=== PATIENT | female | born 1935 | race Caucasian/White ===

== ENCOUNTER → 2016-12-23 | Outpatient (CLI) | payer MEDICARE ==
[~2016-12-23] MED LIST: ALPR-475 PO; ASCO-96 PO; ASPI-621 PO; ATOR20TA9 PO; BUPR-86 PO; CALCIUM PO; CHOL200024 PO; CITA20TA5 PO; FURO-93 PO; KRIL1CAP19 PO; LISI-170 PO; LORA10TA3 PO; METO25TA35 PO; MULT-516 PO; NAPR375T5 PO; OXYC-302 PO; POTASSIUM PO; TIZA2TAB PO; UBID100C19 PO; VIT1CAPS11 PO; VITA1TAB19 PO
[2016-12-23 15:54] LABS: HEMOGLOBIN 11.3 g/dL (11.7-16.4); WHITE BLOOD COUNT 7.2 x10^3/uL (3.4-10)
[2016-12-23 16:07] LABS: ASPARTATE AMINO TRANSFERASE 17 U/L (15-37); BLOOD UREA NITROGEN 22 mg/dL (7-18)
[2016-12-23 16:33] LABS: PATH.CAST-FLAG NOT PRESENT; SPERM-FLAG NOT PRESENT; SRC-FLAG NOT PRESENT; XTAL-FLAG NOT PRESENT; YLC-FLAG NOT PRESENT
== END | disposition home or self-care (01) ==
LOC: STAR 14:40
PROVIDERS: ATTEND Orthopaedic Surgery
DX: Z01.818 Encounter for other preprocedural examination (principal); M17.0 Bilateral primary osteoarthritis of knee; R94.31 Abnormal electrocardiogram [ECG] [EKG]
CPT/HCPCS: 36415; 80053; 81001; 85025; 87081; 87086; 87147; 93005

== ENCOUNTER 2017-01-06 06:17 | Inpatient (IN) | payer MEDICARE ==
[2016-12-23 15:09] VITALS: BP 150/77
[~2017-01-06] VITALS: Ht 161.3 cm; Wt 74.4 kg
[2017-01-06] MEDS ORDERED: VANCOMYCIN PER PHARMACY MC STA (06:24)
[2017-01-06] MEDS ORDERED: VANCOMYCIN 1,200 MG in SODIUM CHLORIDE 0.9% 250 ML IV ONE (06:30)
[2017-01-06] MEDS ORDERED: LIDOCAINE 1%, 2ML ONE (06:34)
[2017-01-06] MEDS ORDERED: LACTATED RINGERS 1,000 ML IV SCH (06:38)
[2017-01-06] MEDS ORDERED: FENTANYL PF 250 MCG/5ML ONE (06:51)
[2017-01-06] MEDS ORDERED: ROCURONIUM 10 MG/ML,10ML ONE (06:52)
[2017-01-06] MEDS ORDERED: PROPOFOL 10 MG/ML, 20ML ONE (06:52)
[2017-01-06] MEDS ORDERED: CEFAZOLIN 1,000 MG ONE ×2 (06:52)
[2017-01-06] MEDS ORDERED: BUPIVACAINE/PF 0.5% ONE (06:55)
[2017-01-06] MEDS ORDERED: LIDOCAINE 1%, 2ML SQ PRN (07:00)
[2017-01-06] MEDS ORDERED: OXYC20TA59 PO (07:00)
[2017-01-06] MEDS ORDERED: CELE200C PO (07:00)
[2017-01-06] MEDS ORDERED: TRANEXAMIC ACID 100 MG/ML, 10ML ONE (07:06)
[2017-01-06] MEDS ORDERED: NEOSPORIN OINT, 15GM ONE (07:06)
[2017-01-06] MEDS ORDERED: KETOROLAC 60 MG/2 ML ONE (07:06)
[2017-01-06] MEDS ORDERED: ROPivacaine/PF 0.2%, 10 ML ONE (07:06)
[2017-01-06] MEDS ORDERED: morphine SULFATE/PF 1 MG/ML, 10ML ONE (07:07)
[2017-01-06] MEDS ORDERED: EPINEPHRINE 1 MG/ML, 1ML ONE (07:07)
[2017-01-06] MEDS ORDERED: FENTANYL PF 100 MCG/2ML IV PRN (08:00)
[2017-01-06] MEDS ORDERED: LABETALOL 5MG/ML, 20ML IV PRN (08:00)
[2017-01-06] MEDS ORDERED: OXYcodone 5 MG/5 ML ORAL.SOL UDC PO PRN (08:00)
[2017-01-06] MEDS ORDERED: METOPROLOL 1 MG/ML, 5ML IV PRN (08:00)
[2017-01-06] MEDS ORDERED: PROMETHAZINE 25 MG/ML, 1ML IV PRN (08:00)
[2017-01-06] MEDS ORDERED: hydrALAzine 20 MG/ML, 1ML IV PRN (08:00)
[2017-01-06] MEDS ORDERED: EPHEDRINE 50 MG/ML, 1ML IVPush PRN (08:00)
[2017-01-06] MEDS ORDERED: HYDROmorphone 1 MG/ML, 1ML IV PRN (08:00)
[2017-01-06] MEDS ORDERED: ONDANSETRON 2MG/ML, 2ML IVPush PRN ×2 (08:00→11:00)
[2017-01-06] MEDS ORDERED: ALBUTEROL SULFATE 2.5 MG/3 ML NPPB PRN (08:00)
[2017-01-06] MEDS ORDERED: SODIUM CHLORIDE 0.9% 100 ML ONE (08:00)
[2017-01-06] MEDS ORDERED: ONDANSETRON 2MG/ML, 2ML ONE (08:01)
[2017-01-06] MEDS ORDERED: DEXAMETHASONE 4 MG/ML, 1ML ONE (08:01)
[2017-01-06] MEDS ORDERED: NEOSTIGMINE 1 MG/ML, 10ML ONE (08:48)
[2017-01-06] MEDS ORDERED: GLYCOPYRROLATE 0.4 MG/2 ML, 2ML ONE (08:48)
[2017-01-06] MEDS ORDERED: MAGNESIUM HYDROXIDE 8%, 30ML UDC PO PRN (11:00)
[2017-01-06] MEDS ORDERED: DIPHENHYDRAMINE 25 MG CAPSULE PO PRN (11:00)
[2017-01-06] MEDS ORDERED: ALUMINUM/MAG/SIMETHICONE 30 ML UDC PO PRN (11:00)
[2017-01-06] MEDS ORDERED: HYDROcodone/APAP 7.5-325MG/15ML UDC PO PRN (11:30)
[2017-01-06] MEDS ORDERED: SCOPOLAMINE PATCH, 1.5MG PATCH.TD72 TD PRN (11:30)
[2017-01-06 14:26] VITALS: BP 106/59
[2017-01-06] MEDS: D5%-0.45% NACL+KCL 10MEQ 1,000 ML IV SCH (15:48)
[2017-01-06] MEDS: CEFAZOLIN PMX 1GM/50ML 50 ML IVPB SCH ×2 (15:48→23:49)
[2017-01-06 18:07] VITALS: BP 131/66
[2017-01-06] MEDS: METOPROLOL TARTRATE 25 MG TABLET PO SCH (18:08)
[2017-01-06 19:22] VITALS: BP 111/55
[2017-01-06] MEDS: LISINOPRIL 20 MG TABLET PO SCH (19:51)
[2017-01-06] MEDS: DOCUSATE 100 MG CAPSULE PO SCH (19:51)
[2017-01-06] MEDS: OXYcodone IR 5MG TABLET PO PRN (19:52)
[2017-01-06] MEDS: ACETAMINOPHEN 325 MG TABLET PO PRN (19:52)
[2017-01-07 00:05] VITALS: BP 108/48
[2017-01-07] MEDS: ACETAMINOPHEN 325 MG TABLET PO PRN ×2 (04:02→20:43)
[2017-01-07] MEDS: OXYcodone IR 5MG TABLET PO PRN ×2 (04:02→11:51)
[2017-01-07 05:33] VITALS: BP 101/46
[2017-01-07] MEDS: METOPROLOL TARTRATE 25 MG TABLET PO SCH ×2 (05:36→17:59)
[2017-01-07] MEDS ORDERED: ENOXAPARIN 30 MG/0.3 ML SQ SCH (06:00)
[2017-01-07 07:22] VITALS: BP 121/53
[2017-01-07] MEDS: LORATADINE 10 MG TABLET PO SCH (08:48)
[2017-01-07] MEDS: DOCUSATE 100 MG CAPSULE PO SCH ×2 (08:49→19:58)
[2017-01-07] MEDS: D5%-0.45% NACL+KCL 10MEQ 1,000 ML IV SCH (11:02)
[2017-01-07] MEDS: KETOROLAC 30 MG/1 ML IV SCH ×2 (11:47→19:58)
[2017-01-07 13:05] VITALS: BP 119/52
[2017-01-07 19:35] VITALS: BP 107/61
[2017-01-07] MEDS: LISINOPRIL 20 MG TABLET PO SCH (19:58)
[2017-01-08 02:00] VITALS: BP 101/59
[2017-01-08] MEDS: ACETAMINOPHEN 325 MG TABLET PO PRN ×2 (03:57→14:13)
[2017-01-08] MEDS: KETOROLAC 30 MG/1 ML IV SCH (03:57)
[2017-01-08] MEDS: D5%-0.45% NACL+KCL 10MEQ 1,000 ML IV SCH (05:01)
[2017-01-08] MEDS ORDERED: ENOXAPARIN 30 MG/0.3 ML SQ SCH (06:00)
[2017-01-08 06:33] VITALS: BP 128/64
[2017-01-08] MEDS: METOPROLOL TARTRATE 25 MG TABLET PO SCH (06:39)
[2017-01-08 07:58] VITALS: BP 146/55
[2017-01-08] MEDS: DOCUSATE 100 MG CAPSULE PO SCH (08:26)
[2017-01-08] MEDS: LORATADINE 10 MG TABLET PO SCH (08:26)
[2017-01-08 14:00] VITALS: BP 116/60
[2017-01-08] MEDS ORDERED: OXYC-307 PO (16:22)
[2017-01-15] MEDS ORDERED: TRAM50TA2 PO (12:48)
== END 2017-01-08 16:40 | disposition home health service (06) | DRG 470 ==
LOC: ORIP 06:17 → 4NOR 10:33 → DCLOUNGE 01-08 16:15
PROVIDERS: ADMIT Orthopaedic Surgery; ATTEND Orthopaedic Surgery
PROC: 0SRC0J9 Replacement of Right Knee Joint with Synthetic Substitute, Cemented, Open Approach (ICD-10-PCS; principal; 2017-01-06 07:30)
DX: M17.11 Unilateral primary osteoarthritis, right knee (principal); D64.9 Anemia, unspecified; I12.9 Hypertensive chronic kidney disease with stage 1 through stage 4 chronic kidney disease, or unspecified chronic kidney disease; N18.9 Chronic kidney disease, unspecified
CPT/HCPCS: C1713; J0171; J0690; J1100; J1650; J1885; J2274; J2405; J2704; J2710; J2795; J3010; J3370; J3490; C1776; J7050; J7120

== ENCOUNTER 2017-02-06 15:14 | Day surgery (SDC) | payer MEDICARE ==
[~2017-02-06] VITALS: Ht 160 cm; Wt 60.0 kg
[~2017-02-06 15:14] MED LIST changes: +CEFAZOLIN 1,000 MG ONE; +CELE200C PO; +GLYCOPYRROLATE 0.2MG/1ML, 5ML ONE; +NEOSTIGMINE 1 MG/ML, 10ML ONE; +OXYC-307 PO; +OXYC20TA59 PO; +PROPOFOL 10 MG/ML, 20ML ONE; +ROCURONIUM 10 MG/ML,10ML ONE; +SUCCINYLCHOLINE 20 MG/ML, 10ML ONE; +TRAM50TA2 PO
[2017-02-06 15:36] VITALS: BP 129/77
[2017-02-06] MEDS ORDERED: LACTATED RINGERS 1,000 ML IV SCH (15:44)
[2017-02-06] MEDS ORDERED: FENTANYL PF 100 MCG/2ML ONE (16:15)
[2017-02-06] MEDS ORDERED: MIDAZOLAM 1 MG/ML, 2ML ONE (16:15)
[2017-02-06] MEDS ORDERED: FENTANYL PF 100 MCG/2ML IV PRN (17:00)
[2017-02-06] MEDS ORDERED: ACETAMINOPHEN 325 MG TABLET PO PRN (17:00)
[2017-02-06] MEDS ORDERED: METOCLOPRAMIDE 5 MG/ML, 2ML IV PRN (17:00)
[2017-02-06] MEDS ORDERED: HYDROmorphone 1 MG/ML, 1ML IV PRN (17:00)
[2017-02-06] MEDS ORDERED: LABETALOL 5MG/ML, 20ML IV PRN (17:00)
[2017-02-06] MEDS ORDERED: hydrALAzine 20 MG/ML, 1ML IV PRN ×2 (17:00)
[2017-02-06] MEDS ORDERED: ONDANSETRON 2MG/ML, 2ML IVPush PRN (17:00)
[2017-02-06] MEDS ORDERED: OXYcodone 5 MG/5 ML ORAL.SOL UDC PO PRN (17:00)
== END 2017-02-06 19:10 ==
LOC: OR 15:14
PROVIDERS: ATTEND Orthopaedic Surgery
DX: I10 Essential (primary) hypertension (principal); L02.415 Cutaneous abscess of right lower limb; M25.061 Hemarthrosis, right knee; M25.461 Effusion, right knee; N18.9 Chronic kidney disease, unspecified; I12.9 Hypertensive chronic kidney disease with stage 1 through stage 4 chronic kidney disease, or unspecified chronic kidney disease; D64.9 Anemia, unspecified; Z96.651 Presence of right artificial knee joint
CPT/HCPCS: 10060; 20610; 87070; 87075; 87077; 87186; 87205; 89051; J0330; J0690; J2250; J2704; J2710; J3010; J3490

== ENCOUNTER 2017-02-09 21:38 | Inpatient (IN) | payer MEDICARE ==
[~2017-02-09] VITALS: Ht 160 cm; Wt 64.3 kg
[~2017-02-09 21:38] MED LIST changes: -CEFAZOLIN 1,000 MG ONE; -GLYCOPYRROLATE 0.2MG/1ML, 5ML ONE; -NEOSTIGMINE 1 MG/ML, 10ML ONE; -PROPOFOL 10 MG/ML, 20ML ONE; -ROCURONIUM 10 MG/ML,10ML ONE; -SUCCINYLCHOLINE 20 MG/ML, 10ML ONE
[2017-02-09] MEDS ORDERED: OXYcodone/APAP 5/325MG TABLET ONE (22:26)
[2017-02-09] MEDS ORDERED: VANCOMYCIN 1,200 MG in SODIUM CHLORIDE 0.9% 250 ML IV ONE (22:30)
[2017-02-09] MEDS ORDERED: VANCOMYCIN PER PHARMACY IV ONE (22:30)
[2017-02-09] MEDS ORDERED: OXYcodone/APAP 5/325MG TABLET PO ONE (22:30)
[2017-02-09] MEDS ORDERED: SODIUM CHLORIDE FLUSH 10ML SYR IVF ONE (22:30)
[2017-02-09 22:32] LABS: BASOPHILS # (AUTO) 0.05 x10^3/uL (0-0.1); BASOPHILS % (AUTO) 0 % (0-1); EOSINOPHILS # (AUTO) 0.02 x10^3/uL (0-0.4); EOSINOPHILS % (AUTO) 0 % (1-7); LYMPHOCYTES # (AUTO) 0.69 x10^3/uL (1-3.4); LYMPHOCYTES % (AUTO) 4 % (22-44); MD NO; MEAN CORPUSCULAR HGB CONC 33.5 g/dL (32.4-35.8); MEAN CORPUSCULAR VOLUME 89.5 fL (80-100); MEAN PLATELET VOLUME 7.3 fL (7.4-10.4); MONOCYTES # (AUTO) 0.63 x10^3/uL (0.2-0.8); MONOCYTES % (AUTO) 4 % (2-9); NEUTROPHILS # (AUTO) 15.01 x10^3/uL (1.8-6.8); NEUTROPHILS % (AUTO) 92 % (42-75); PLATELET COUNT 224 x10^3/uL (130-400)
[2017-02-09 22:42] LABS: INTERNATIONAL NORMALIZED RATIO 1.16 (0.93-1.1)
[2017-02-09 22:45] LABS: ALBUMIN 3.2 g/dL (3.4-5.0); ANION GAP 9 mmol/L (5-15); CALCIUM 8.6 mg/dL (8.5-10.1); CHLORIDE 105 mmol/L (98-107); CREATININE 1.56 mg/dL (0.55-1.02)
[2017-02-09] MEDS ORDERED: SODIUM CHLORIDE 0.9%, 500ML IVBOLUS ONE (23:00)
[2017-02-09] MEDS ORDERED: MORPHINE SULFATE 4 MG/ML, 1ML ONE (23:08)
[2017-02-09] MEDS ORDERED: MORPHINE SULFATE 4 MG/ML, 1ML IVPush ONE (23:30)
[2017-02-10 00:21] VITALS: BP 100/42
[2017-02-10] MEDS ORDERED: ENALAPRILAT 1.25 MG/ML, 2ML IVPush PRN (01:00)
[2017-02-10] MEDS ORDERED: OXYcodone/APAP 5/325MG TABLET PO PRN (01:00)
[2017-02-10] MEDS ORDERED: VANCOMYCIN PER PHARMACY MC PRN (01:00)
[2017-02-10] MEDS ORDERED: ONDANSETRON ODT 4 MG PO PRN (01:00)
[2017-02-10] MEDS ORDERED: ACETAMINOPHEN 325 MG TABLET PO PRN (01:00)
[2017-02-10] MEDS ORDERED: PHARMACOKINETIC MONITORING MC PRN (02:00)
[2017-02-10 08:22] VITALS: BP 122/60
[2017-02-10] MEDS: CITALOPRAM 20 MG TABLET PO SCH (08:38)
[2017-02-10] MEDS: LORATADINE 10 MG TABLET PO SCH (08:38)
[2017-02-10] MEDS: METOPROLOL TARTRATE 25 MG TABLET PO SCH ×2 (08:39→21:03)
[2017-02-10] MEDS: BUPROPION SR 150 MG TABLET PO SCH (08:39)
[2017-02-10] MEDS: TIZANIDINE 2MG TABLET PO SCH (08:40)
[2017-02-10] MEDS: ASCORBIC ACID 500 MG TABLET PO SCH (09:00)
[2017-02-10] MEDS ORDERED: AST PO SCH (09:00)
[2017-02-10] MEDS: CALCIUM CARBONATE 500 MG TABLET PO SCH ×2 (09:00→21:03)
[2017-02-10] MEDS ORDERED: KRILL PO SCH (09:00)
[2017-02-10] MEDS: CHOLECALCIFEROL 1,000 UNIT TABLET PO SCH (09:00)
[2017-02-10] MEDS ORDERED: DHA PO SCH (09:00)
[2017-02-10] MEDS ORDERED: [UNRECOGNIZED DRUG - OTHER] PO SCH (09:00)
[2017-02-10] MEDS ORDERED: EPA PO SCH (09:00)
[2017-02-10] MEDS ORDERED: PHOSPHO PO SCH (09:00)
[2017-02-10] MEDS: MULTIVITS,STRESS FORMULA 1 TABLET PO SCH (09:00)
[2017-02-10] MEDS: VIT E PO SCH ×2 (09:04→21:00)
[2017-02-10] MEDS: COPPER PO SCH ×2 (09:04→21:00)
[2017-02-10] MEDS: VIT C PO SCH ×2 (09:04→21:00)
[2017-02-10] MEDS: VIT A PO SCH ×2 (09:04→21:00)
[2017-02-10] MEDS: ZINC PO SCH ×2 (09:04→21:00)
[2017-02-10] MEDS: MULTIVITAMIN 1 TABLET PO SCH (09:04)
[2017-02-10] MEDS: UBIDECARENONE 300 MG PO SCH (09:04)
[2017-02-10 15:18] VITALS: BP 116/51
[2017-02-10 18:52] VITALS: BP 111/53
[2017-02-10 20:40] VITALS: BP_SYST 109; BP_SYST 112; BP_DIAS 42; BP_DIAS 49
[2017-02-10] MEDS: LISINOPRIL 20 MG TABLET PO SCH (21:00)
[2017-02-10] MEDS: ATORVASTATIN 20 MG TABLET PO SCH (21:03)
[2017-02-10] MEDS: VANCOMYCIN PMX 1GM/200ML 200 ML IV SCH (23:11)
[2017-02-11 01:32] VITALS: BP 127/63
[2017-02-11 05:20] LABS: BASOPHILS # (AUTO) 0.04 x10^3/uL (0-0.1); BASOPHILS % (AUTO) 0 % (0-1); EOSINOPHILS # (AUTO) 0.06 x10^3/uL (0-0.4); EOSINOPHILS % (AUTO) 1 % (1-7); LYMPHOCYTES # (AUTO) 1.29 x10^3/uL (1-3.4); LYMPHOCYTES % (AUTO) 14 % (22-44); MD NO; MEAN CORPUSCULAR HGB CONC 33.4 g/dL (32.4-35.8); MEAN PLATELET VOLUME 7.8 fL (7.4-10.4); MONOCYTES # (AUTO) 0.88 x10^3/uL (0.2-0.8); MONOCYTES % (AUTO) 9 % (2-9); NEUTROPHILS # (AUTO) 7.08 x10^3/uL (1.8-6.8); NEUTROPHILS % (AUTO) 76 % (42-75); PLATELET COUNT 191 x10^3/uL (130-400); RED BLOOD COUNT 2.98 x10^6/uL (3.82-5.3); RED CELL DISTRIBUTION WIDTH 16.3 % (9.6-15.2)
[2017-02-11 05:24] LABS: ALBUMIN 2.6 g/dL (3.4-5.0); ANION GAP 7 mmol/L (5-15); CALCIUM 8.4 mg/dL (8.5-10.1); CHLORIDE 107 mmol/L (98-107); CREATININE 1.27 mg/dL (0.55-1.02)
[2017-02-11] MEDS: VIT C PO SCH ×2 (07:27→20:13)
[2017-02-11] MEDS: VIT A PO SCH ×2 (07:27→20:13)
[2017-02-11] MEDS: COPPER PO SCH ×2 (07:27→20:13)
[2017-02-11] MEDS: ZINC PO SCH ×2 (07:27→20:13)
[2017-02-11] MEDS: VIT E PO SCH ×2 (07:27→20:13)
[2017-02-11] MEDS: UBIDECARENONE 300 MG PO SCH (07:27)
[2017-02-11 08:37] VITALS: BP 117/55
[2017-02-11] MEDS: TIZANIDINE 2MG TABLET PO SCH (09:04)
[2017-02-11] MEDS: MULTIVITS,STRESS FORMULA 1 TABLET PO SCH (09:04)
[2017-02-11] MEDS: CITALOPRAM 20 MG TABLET PO SCH (09:04)
[2017-02-11] MEDS: CALCIUM CARBONATE 500 MG TABLET PO SCH ×2 (09:04→20:12)
[2017-02-11] MEDS: CHOLECALCIFEROL 1,000 UNIT TABLET PO SCH (09:04)
[2017-02-11] MEDS: BUPROPION SR 150 MG TABLET PO SCH (09:04)
[2017-02-11] MEDS: ASCORBIC ACID 500 MG TABLET PO SCH (09:05)
[2017-02-11] MEDS: MULTIVITAMIN 1 TABLET PO SCH (09:05)
[2017-02-11] MEDS: LORATADINE 10 MG TABLET PO SCH (09:05)
[2017-02-11] MEDS: METOPROLOL TARTRATE 25 MG TABLET PO SCH ×2 (09:05→20:12)
[2017-02-11 14:34] VITALS: BP 109/54
[2017-02-11 20:00] VITALS: BP 118/57
[2017-02-11] MEDS: LISINOPRIL 20 MG TABLET PO SCH (20:12)
[2017-02-11] MEDS: ATORVASTATIN 20 MG TABLET PO SCH (20:12)
[2017-02-11] MEDS: VANCOMYCIN PMX 1GM/200ML 200 ML IV SCH (23:35)
[2017-02-12 02:09] VITALS: BP 101/42
[2017-02-12 07:27] VITALS: BP 121/53
[2017-02-12] MEDS: CITALOPRAM 20 MG TABLET PO SCH (08:07)
[2017-02-12] MEDS: TIZANIDINE 2MG TABLET PO SCH (08:07)
[2017-02-12] MEDS: CHOLECALCIFEROL 1,000 UNIT TABLET PO SCH (08:07)
[2017-02-12] MEDS: CALCIUM CARBONATE 500 MG TABLET PO SCH (08:07)
[2017-02-12] MEDS: BUPROPION SR 150 MG TABLET PO SCH (08:07)
[2017-02-12] MEDS: MULTIVITS,STRESS FORMULA 1 TABLET PO SCH (08:07)
[2017-02-12] MEDS: ASCORBIC ACID 500 MG TABLET PO SCH (08:07)
[2017-02-12] MEDS: METOPROLOL TARTRATE 25 MG TABLET PO SCH (08:08)
[2017-02-12] MEDS: LORATADINE 10 MG TABLET PO SCH (08:08)
[2017-02-12] MEDS: MULTIVITAMIN 1 TABLET PO SCH (08:08)
[2017-02-12] MEDS: VIT E PO SCH (08:10)
[2017-02-12] MEDS: VIT A PO SCH (08:10)
[2017-02-12] MEDS: UBIDECARENONE 300 MG PO SCH (08:10)
[2017-02-12] MEDS: COPPER PO SCH (08:10)
[2017-02-12] MEDS: VIT C PO SCH (08:10)
[2017-02-12] MEDS: ZINC PO SCH (08:10)
[2017-02-12] MEDS ORDERED: DOXYCYCLINE 100MG TABLET PO SCH (11:30)
[2017-02-12 12:15] LABS: BASOPHILS # (AUTO) 0.08 x10^3/uL (0-0.1); BASOPHILS % (AUTO) 1 % (0-1); EOSINOPHILS # (AUTO) 0.23 x10^3/uL (0-0.4); EOSINOPHILS % (AUTO) 3 % (1-7); LYMPHOCYTES # (AUTO) 1.11 x10^3/uL (1-3.4); LYMPHOCYTES % (AUTO) 15 % (22-44); MD NO; MEAN CORPUSCULAR HEMOGLOBIN 29.6 pg (27.0-34.8); MEAN CORPUSCULAR HGB CONC 32.8 g/dL (32.4-35.8); MEAN PLATELET VOLUME 7.3 fL (7.4-10.4); MONOCYTES # (AUTO) 0.77 x10^3/uL (0.2-0.8); MONOCYTES % (AUTO) 10 % (2-9); NEUTROPHILS # (AUTO) 5.52 x10^3/uL (1.8-6.8); NEUTROPHILS % (AUTO) 72 % (42-75); PLATELET COUNT 278 x10^3/uL (130-400); RED BLOOD COUNT 3.36 x10^6/uL (3.82-5.3); RED CELL DISTRIBUTION WIDTH 16.1 % (9.6-15.2)
[2017-02-12 12:25] LABS: ANION GAP 7 mmol/L (5-15); CALCIUM 8.7 mg/dL (8.5-10.1); CHLORIDE 106 mmol/L (98-107); CREATININE 1.24 mg/dL (0.55-1.02)
[2017-02-12 14:27] VITALS: BP 115/59
[2017-02-12] MEDS ORDERED: DOXY100T PO (15:42)
== END 2017-02-12 16:40 | DRG 871 ==
LOC: ED 22:53 → EDIP 23:13 → 4NOR 02-10 00:09
PROVIDERS: ADMIT Surgery; ATTEND Surgery
DX: A41.9 Sepsis, unspecified organism (principal); G93.41 Metabolic encephalopathy; N17.9 Acute kidney failure, unspecified; I50.20 Unspecified systolic (congestive) heart failure; L03.115 Cellulitis of right lower limb; F33.9 Major depressive disorder, recurrent, unspecified; I11.0 Hypertensive heart disease with heart failure; Z96.651 Presence of right artificial knee joint; D64.9 Anemia, unspecified; E78.5 Hyperlipidemia, unspecified; F41.9 Anxiety disorder, unspecified; Z82.5 Family history of asthma and other chronic lower respiratory diseases; Z88.8 Allergy status to other drugs, medicaments and biological substances
CPT/HCPCS: 36415; 80048; 82040; 83605; 83735; 84145; 85025; 85610; 85730; 87040; 87070; 87075; 87077; 87186; 87205; 89051; 96365; 96375; J3370; J7040; J7050

== ENCOUNTER 2017-03-04 20:19 | Emergency (ER) | payer MEDICARE ==
[~2017-03-04] VITALS: Ht 160 cm; Wt 61.1 kg
[~2017-03-04 20:19] MED LIST changes: +DOXY100T PO
[2017-03-04] MEDS ORDERED: FAMOTIDINE 20 MG/2 ML IVP ONE (21:00)
[2017-03-04] MEDS ORDERED: ONDANSETRON 2MG/ML, 2ML IVPush ONE (21:00)
[2017-03-04] MEDS ORDERED: SODIUM CHLORIDE 0.9% 1,000ML IVBOLUS ONE (21:00)
[2017-03-04 21:02] LABS: BASOPHILS # (AUTO) 0.01 x10^3/uL (0-0.1); BASOPHILS % (AUTO) 0 % (0-1); EOSINOPHILS # (AUTO) 0.04 x10^3/uL (0-0.4); EOSINOPHILS % (AUTO) 0 % (1-7); LYMPHOCYTES # (AUTO) 0.25 x10^3/uL (1-3.4); LYMPHOCYTES % (AUTO) 3 % (22-44); MD NO; MEAN CORPUSCULAR HGB CONC 33.4 g/dL (32.4-35.8); MEAN CORPUSCULAR VOLUME 89.8 fL (80-100); MEAN PLATELET VOLUME 7.4 fL (7.4-10.4); MONOCYTES % (AUTO) 3 % (2-9); NEUTROPHILS # (AUTO) 7.64 x10^3/uL (1.8-6.8); NEUTROPHILS % (AUTO) 94 % (42-75); PLATELET COUNT 224 x10^3/uL (130-400); RED BLOOD COUNT 3.94 x10^6/uL (3.82-5.3); RED CELL DISTRIBUTION WIDTH 17.1 % (9.6-15.2)
[2017-03-04 21:14] LABS: ALANINE AMINOTRANSFERASE 14 U/L (12-78); ALBUMIN 3.3 g/dL (3.4-5.0); ANION GAP 9 mmol/L (5-15); CALCIUM 8.2 mg/dL (8.5-10.1); CHLORIDE 108 mmol/L (98-107)
[2017-03-04 21:17] LABS: ALKALINE PHOSPHATASE 85 U/L (45-117); BILIRUBIN,TOTAL 0.5 mg/dL (0.2-1.0); CREATININE 1.39 mg/dL (0.55-1.02); TOTAL PROTEIN 6.4 g/dL (6.4-8.2)
[2017-03-04 21:44] LABS: MICROSCOPIC NOT IND
[2017-03-04 21:48] LABS: CULTURE INDICATED? NO
[2017-03-04 22:35] VITALS: BP 103/46
[2017-03-04 22:41] LABS: CLOSTRIDIUM DIFFICILE ANTIGEN NEGATIVE; CLOSTRIDIUM DIFFICILE TOXIN NEGATIVE (Negative)
== END 2017-03-05 00:43 | disposition home or self-care (01) ==
LOC: ED 23:32
DX: R19.7 Diarrhea, unspecified (principal); R11.2 Nausea with vomiting, unspecified; F32.9 Major depressive disorder, single episode, unspecified; F41.9 Anxiety disorder, unspecified; I10 Essential (primary) hypertension; Z86.14 Personal history of Methicillin resistant Staphylococcus aureus infection; Z98.890 Other specified postprocedural states
CPT/HCPCS: 36415; 80053; 81003; 85025; 87324; 89055; 99284